=== PATIENT | female | born 1940 | race Two or more races ===

== ENCOUNTER 2023-05-21 17:00 | Inpatient (IN) | payer OTHER ==
[~2023-05-21] VITALS: Ht 162.6 cm; Wt 77.1 kg
[2023-05-21] MEDS ORDERED: LORAZEPAM1 MG PO (17:17)
[2023-05-21] MEDS ORDERED: SEROQUEL200 MG PO (17:17)
[2023-05-21] MEDS ORDERED: SIMVASTATIN40 MG PO (17:17)
[2023-05-21] MEDS ORDERED: QUETIAPINE FUM200 MG PO (17:17)
[2023-05-21] MEDS ORDERED: CICLOPIROX6.6 ML (17:18)
--- NOTE | 2023-05-21 17:18 | NUR ---
PTE ALERTA,ESTABLE Y ORIENTADA.ESTA REFIERE QUE LLEVA VARIOS CERNA CON DIFICULTAD RESPIRATORIA
== END 2023-05-28 12:46 | disposition home or self-care (01) | DRG 292 ==
LOC: ER 17:00 → MEDI 22:40 → SEC-K 22:40 → MEDI 05-22 01:56 → SEC-K 05-22 06:53 → MEDI 05-23 15:22
PROVIDERS: ADMIT Specialist; ATTEND Specialist
PROC: BW21ZZZ Computerized Tomography (CT Scan) of Abdomen and Pelvis (ICD-10-PCS; principal; 2023-05-21)
PROC: BW24ZZZ Computerized Tomography (CT Scan) of Chest and Abdomen (ICD-10-PCS; 2023-05-21)
PROC: B24BZZZ Ultrasonography of Heart with Aorta (ICD-10-PCS; 2023-05-21)
PROC: 4A12X4Z Monitoring of Cardiac Electrical Activity, External Approach (ICD-10-PCS; 2023-05-24)
DX: I50.23 Acute on chronic systolic (congestive) heart failure (principal); I42.9 Cardiomyopathy, unspecified; N17.9 Acute kidney failure, unspecified; I34.0 Nonrheumatic mitral (valve) insufficiency; F03.90 Unspecified dementia, unspecified severity, without behavioral disturbance, psychotic disturbance, mood disturbance, and anxiety; F20.9 Schizophrenia, unspecified; N18.9 Chronic kidney disease, unspecified; E78.5 Hyperlipidemia, unspecified